=== PATIENT | female | born 1945 | race Caucasian/White ===

== ENCOUNTER 2017-03-10 18:24 | Emergency (ER) | payer MEDICARE, MEDICAID ==
[~2017-03-10] VITALS: Ht 165.1 cm; Wt 94.8 kg
[~2017-03-10 18:24] MED LIST: ASPI-605 PO; ESOM40CA PO; FENO54TA PO; FLUT1DIS INH; FURO40TA5 PO; LUBI8CAP PO; METO100T3 PO; OLME1TAB PO; PRAM0.253 GT; SIMV20TA6 PO; SOLI5TAB PO; ZOLP5TAB7 PO
--- NOTE | 2017-03-10 18:40 | NUR ---
PT SELF PRESENTS TO ED WITH FAMILY COMPLAINS OF HEART BURN, EPIGASTRIC PAIN. PLACED PT ON MONITOR. VSS. SAFETY MEASURES IN PLACED. AWAITING MD ORDER.
[2017-03-10] MEDS ORDERED: IV SET PRIMARY PUMP SET 1 EA INFUS.SET MC ONE (18:42)
[2017-03-10] MEDS ORDERED: FAMOTIDINE/PF INJ 20 MG/2 ML VIAL IV ONE ×2 (18:42→19:00)
[2017-03-10] MEDS ORDERED: ONDANSETRON HCL/PF 4 MG/2 ML VIAL ONE ×2 (18:42→19:30)
[2017-03-10] MEDS ORDERED: IV NS 0.9% 1,000 ML ONE (18:42)
--- NOTE | 2017-03-10 18:50 | NUR ---
BHARAT #20 IV ACCESS BLOOD SAMPLE COLLECTED SENT TO LAB
[2017-03-10 18:58] LABS: BASOPHILS # (AUTO) 0.2 /CMM (0.0-0.2); BASOPHILS % (AUTO) 1.9 % (0.0-2.0); EOSINOPHILS # (AUTO) 0.4 /CMM (0.0-0.7); EOSINOPHILS % (AUTO) 4.1 % (0.0-6.0); HEMATOCRIT 36 % (33-45); HEMOGLOBIN 12.1 g/dL (11.5-14.8); LYMPHOCYTES # (AUTO) 1.5 /CMM (0.8-4.8); LYMPHOCYTES % (AUTO) 14.7 % (20.0-44.0); MEAN CORPUSCULAR HEMOGLOBIN 28 PG (26.0-33.0); MEAN CORPUSCULAR HGB CONC 34 g/dl (31.0-36.0); MEAN CORPUSCULAR VOLUME 83 fL (82-100); MONOCYTES # (AUTO) 0.6 /CMM (0.1-1.30); MONOCYTES % (AUTO) 5.9 % (2.0-12.0); NEUTROPHILS # (AUTO) 7.4 /CMM (1.8-8.9); NEUTROPHILS % (AUTO) 73.4 % (43.0-81.0); PLATELET COUNT (AUTO) 319 /CMM (150-450); RDW COEFFICIENT OF VARIATION 15.2 (11.5-15.0); RED BLOOD CELL COUNT(AUTO) 4.32 MIL/uL (4.0-5.2); WHITE BLOOD COUNT (AUTO) 10.1 K/uL (4.3-11.0)
[2017-03-10] MEDS ORDERED: ONDANSETRON HCL/PF 4 MG/2 ML VIAL IVP ONE ×2 (19:00→20:00)
[2017-03-10] MEDS ORDERED: IV NS 0.9% 500 ML IV ONE (19:00)
--- NOTE | 2017-03-10 19:03 | NUR ---
XRAY AT BEDSIDE
[2017-03-10 19:09] LABS: CALCIUM, SERUM 10.2 mg/dL (8.5-10.1); CREATININE 1.4 mg/dL (0.6-1.3); POTASSIUM 3.7 mmol/L (3.5-5.1)
[2017-03-10 19:14] LABS: ALBUMIN 3.9 g/dL (3.4-5.0); BILIRUBIN,DIRECT 0.1 mg/dL (0.0-0.2); BILIRUBIN,TOTAL 0.2 mg/dL (0.2-1.0); TOTAL PROTEIN, SERUM 7.5 g/dL (6.4-8.2)
[2017-03-10 19:17] LABS: TROPONIN I 0.043 ng/mL (0.00-0.056)
--- NOTE | 2017-03-10 19:18 | NUR ---
GAVE REPORT TO ED FOR JULISSA
--- NOTE | 2017-03-10 19:20 | NUR ---
ASSUMED CARE. RECEIVE PT AAOX4 NO ACUTE DISTRESS NOTED, RESP EVEN AND UNLABORED. PT AMBULATORY TO THE BATHROOM WITH STEADY GAIT TO PROVIDE URINE SAMPLE.
[2017-03-10] MEDS ORDERED: LIDOCAINE VISCOUS 2% UD 15 ML UDC ONE (19:28)
[2017-03-10] MEDS ORDERED: MAG HYDROX/AL HYDROX/SIMETH 30 ML UDC ONE (19:28)
--- NOTE | 2017-03-10 19:30 | NUR ---
PT STILL C/O NAUSEA. ER MD MADE AWARE WITH ORDERS RECEIVED. WILL CARRY OUT ORDERS.
--- NOTE | 2017-03-10 19:35 | NUR ---
PT MEDICATED BY RN PER ER MD ORDER.
[2017-03-10 19:36] LABS: APPEARANCE,URINE Clear (CLEAR); BILIRUBIN,URINE Negative (NEGATIVE); BLOOD, URINE Trace-intact Ery/uL (NEGATIVE); COLOR,URINE Yellow (YELLOW); KETONES,URINE Negative (NEGATIVE); LEUKOCYTE ESTERASE ,URINE Negative (NEGATIVE); NITRITE, URINE Positive (NEGATIVE); PH,URINE 5.5 (5.0-8.0); PROTEIN,URINE Negative (NEGATIVE); UGLUCOSE Negative (NEGATIVE); UROBILINOGEN,URINE 0.2 EU/dL (0.2)
--- NOTE | 2017-03-10 19:37 | NUR ---
ESA GAMBLE AT BEDSIDE TO RE-EVAL PT.
[2017-03-10] MEDS ORDERED: methylPREDNISolone SOD SUCC 125 MG/2ML VIAL ONE (19:43)
[2017-03-10] MEDS ORDERED: diphenhydrAMINE HCL 50 MG/ML VIAL ONE (19:43)
[2017-03-10 19:45] LABS: ADD URINE CULTURE YES; BACTERIA,URINE Many /HPF (None Seen); RBC,URINE 0-2 /HPF (0-2); SQUAMOUS EPITHELIAL CELL,UR Few /HPF (None Seen); WBC,URINE 0-2 /HPF (0-3)
--- NOTE | 2017-03-10 19:57 | NUR ---
ESA GAMBLE AT BEDSIDE TO RE-EVAL PT.
[2017-03-10] MEDS ORDERED: MAG HYDROX/AL HYDROX/SIMETH 30 ML UDC PO ONE (20:00)
[2017-03-10] MEDS ORDERED: diphenhydrAMINE HCL 50 MG/ML VIAL IV ONE (20:00)
[2017-03-10] MEDS ORDERED: methylPREDNISolone SOD SUCC 125 MG/2ML VIAL IV ONE (20:00)
[2017-03-10] MEDS ORDERED: LIDOCAINE VISCOUS 2% UD 15 ML UDC MM ONE (20:00)
--- NOTE | 2017-03-10 20:02 | NUR ---
IV removed. Catheter intact and site benign. Pressure and 4x4 applied to site. No bleeding noted. Patient discharged to home in stable condition. Written and verbal after care instructions given. Patient verbalizes understanding of instruction. ambulatory with a steady gait noted. pt aaox4 no acute disrtess noted, resp even and unlabored. pt family member at bedside to take pt home.
[2017-03-10 20:06] VITALS: BP 162/92
== END 2017-03-10 20:08 | disposition home or self-care (01) ==
LOC: ER 18:25
DX: T78.40XA Allergy, unspecified, initial encounter (principal); R10.13 Epigastric pain; I10 Essential (primary) hypertension; J45.909 Unspecified asthma, uncomplicated; K21.9 Gastro-esophageal reflux disease without esophagitis; K44.9 Diaphragmatic hernia without obstruction or gangrene; Z79.82 Long term (current) use of aspirin; Z88.1 Allergy status to other antibiotic agents
CPT/HCPCS: 36415; 71010; 80048; 80076; 81001; 83690; 84484; 85025; 87077; 87086; 87186; 93005; 96374; 96375; 96376; 99285; A4606; J1200; J2405; J2930; J3490; J7030; 81000-TC; Z7610

== ENCOUNTER 2019-06-26 17:33 | Emergency (ER) | payer MEDICARE, MEDICAID ==
[~2019-06-26 17:33] MED LIST changes: +METO100T14 PO; -METO100T3 PO; -OLME1TAB PO; +OLME1TAB16 PO; -SOLI5TAB PO; +SOLI5TAB2 PO; -ZOLP5TAB7 PO; +ZOLP5TAB8 PO
--- NOTE | 2019-06-26 18:05 | NUR ---
CALLED IN WAITING ROOM. NO ANSWER.
== END 2019-06-26 18:20 | disposition left against medical advice (07) ==
LOC: ER 17:33
DX: Z53.21 Procedure and treatment not carried out due to patient leaving prior to being seen by health care provider (principal)

== ENCOUNTER 2019-09-24 17:38 | Inpatient (IN) | payer MEDICARE, MEDICAID ==
[~2019-09-24] VITALS: Ht 154.9 cm; Wt 88.0 kg
--- NOTE | 2019-09-24 17:45 | NUR ---
BIB [facility] FROM HOME, WORSENING BACK PAIN,EPIDURAL SHOT GIVEN 3 DAYS AGO. PATIENT A/OX4, BREATHING EVEN AND UNLABORED, NO SOB NOTED, NEEDS ATTENDED, KEPT COMFORTABLE. FAMILY AT BEDSIDE.
--- NOTE | 2019-09-24 17:50 | NUR ---
DR. DE LA TORRE AT BEDSIDE FOR EVAL.
[2019-09-24] MEDS ORDERED: KETOROLAC TROMETHAMINE INJ 30 MG/ML VIAL IV ONE (18:00)
[2019-09-24] MEDS ORDERED: HYDROMORPHONE INJ 2 MG/ML DISP.SYRIN IV ONE (18:00)
[2019-09-24] MEDS ORDERED: KETOROLAC TROMETHAMINE 15 MG/ML VIAL ONE (18:02)
[2019-09-24] MEDS ORDERED: HYDROMORPHONE 1 MG/1 ML DISP.SYRIN ONE (18:03)
--- NOTE | 2019-09-24 18:57 | NUR ---
Patient is resting comfortably in bed with eyes closed. Easily aroused. VSS
--- NOTE | 2019-09-24 18:58 | NUR ---
BP ELEVATED, MD AWARE.
[2019-09-24] MEDS ORDERED: hydrALAZINE HCL IV 20 MG VIAL IV ONE (19:00)
[2019-09-24] MEDS ORDERED: CARVEDILOL 6.25 MG TABLET PO ONE (19:00)
--- NOTE | 2019-09-24 19:02 | NUR ---
CALLED NURSING SUP FOR MED/SURG BED.
[2019-09-24] MEDS ORDERED: hydrALAZINE HCL IV 20 MG VIAL ONE (19:04)
[2019-09-24] MEDS ORDERED: CARVEDILOL 6.25 MG TABLET ONE (19:04)
[2019-09-24] MEDS ORDERED: IV NS 0.9% 1,000 ML IV PRN (19:26)
--- NOTE | 2019-09-24 19:28 | NUR ---
AALIYAH ROSSI HOUSE DIRECTOR AT BEDSIDE FOR EVAL.
[2019-09-24] MEDS ORDERED: ACETAMINOPHEN 325 MG TABLET PO PRN (19:30)
[2019-09-24] MEDS ORDERED: MAGNESIUM HYDROXIDE 30 ML UDC PO PRN (19:30)
[2019-09-24] MEDS ORDERED: MAG HYDROX/AL HYDROX/SIMETH 30 ML UDC PO PRN (19:30)
[2019-09-24] MEDS ORDERED: HYDROCODONE/APAP 10/325MG 1 EA TABLET PO PRN (19:30)
[2019-09-24] MEDS ORDERED: ONDANSETRON HCL/PF 4 MG/2 ML VIAL IVP PRN (19:30)
[2019-09-24] MEDS ORDERED: ZOLPIDEM TARTRATE 5 MG TABLET PO PRN (19:30)
[2019-09-24 19:47] LABS: BASOPHILS % (AUTO) 0.5 % (0.0-2.0); EOSINOPHILS % (AUTO) 0.7 % (0.0-6.0); HEMATOCRIT 39 % (33-45); HEMOGLOBIN 12.8 g/dL (11.5-14.8); LYMPHOCYTES # (AUTO) 1.7 /CMM (0.8-4.8); LYMPHOCYTES % (AUTO) 17.5 % (20.0-44.0); MEAN CORPUSCULAR HGB CONC 33 g/dl (31.0-36.0); MEAN CORPUSCULAR VOLUME 84 fL (82-100); MONOCYTES # (AUTO) 0.5 /CMM (0.1-1.30); MONOCYTES % (AUTO) 5.3 % (2.0-12.0); NEUTROPHILS # (AUTO) 7.5 /CMM (1.8-8.9); PLATELET COUNT (AUTO) 319 /CMM (150-450); RED BLOOD CELL COUNT(AUTO) 4.67 MIL/uL (4.0-5.2); WHITE BLOOD COUNT (AUTO) 9.8 K/uL (4.3-11.0)
--- NOTE | 2019-09-24 19:51 | NUR ---
TAKEN TO CT.
[2019-09-24 19:59] LABS: CALCIUM, SERUM 9.7 mg/dL (8.5-10.1); CREATININE 1.2 mg/dL (0.6-1.3); POTASSIUM 4.5 mmol/L (3.5-5.1)
--- NOTE | 2019-09-24 19:59 | NUR ---
NURSIGN SUP GAVE BED 328-2.
[2019-09-24] MEDS ORDERED: hydrALAZINE HCL IV 20 MG VIAL IV PRN (20:00)
--- NOTE | 2019-09-24 20:14 | NUR ---
REPORT GIVEN TO GRABIEL MATOS. MED RECON REVIEWED.
[2019-09-24] MEDS ORDERED: RANI300C PO (20:26)
[2019-09-24] MEDS ORDERED: OLME1TAB19 PO (20:26)
[2019-09-24] MEDS ORDERED: LINA290C PO (20:26)
[2019-09-24] MEDS ORDERED: ESZO3TAB27 PO (20:26)
[2019-09-24] MEDS ORDERED: CARV12.52 PO (20:26)
[2019-09-24] MEDS ORDERED: CLOP75TA15 PO (20:26)
[2019-09-24] MEDS ORDERED: MYRBETRIQ PO (20:26)
[2019-09-24] MEDS ORDERED: CHOL20004 PO (20:26)
[2019-09-24] MEDS ORDERED: FLUO60SO3 TP (20:26)
[2019-09-24] MEDS ORDERED: OMEP40CA37 PO (20:26)
[2019-09-24] MEDS ORDERED: DOCU250C88 PO (20:26)
[2019-09-24] MEDS ORDERED: FLUT1BLS6 IH (20:26)
[2019-09-24] MEDS ORDERED: FEBU40TA PO (20:26)
[2019-09-24] MEDS ORDERED: IMIP25TA6 PO (20:26)
[2019-09-24] MEDS ORDERED: SPIR25TA6 PO (20:26)
[2019-09-24] MEDS ORDERED: NALT50TA PO (20:26)
[2019-09-24] MEDS ORDERED: ROSU10TA2 PO (20:26)
[2019-09-24] MEDS ORDERED: FENO134C PO (20:26)
--- NOTE | 2019-09-24 20:42 | NUR ---
PATIENT TRANSFERRED TO MED SURG, IN STABLE CONDITION. FAMILY AT BEDSIDE.
[2019-09-24 20:45] VITALS: BP 176/83
--- NOTE | 2019-09-24 20:45 | NUR ---
RN MS ADMITTING OPENING NOTES RECEIVED PATIENT FROM ER VIA GURNEY SAFELY TRANSFERRED TO BED, AWAKE ALERT AND ORIENTED X4, NEPALI AND [place] SPEAKING FAMILY AT BEDSIDE, NOTED PATIENT WITH PAIN GRASPING RIGHT SIDE BACK EXTENDING TO LEG STATES "10/". IV SITE TO LEFT AC #20 G INTACT AND PATENT, NO REDNESS, NO INFILTRATION PRESENT, PER PATIENT WHEN OFFERED BODY SKIN ASSESSMENT NO OPEN WOUND PRESENT, ONLY RIGHT KNEE BRUISE. BELONGINGS LIST DONE, ORIENTED TO STAFF AND CALL LIGHT AND KEPT WITHIN REACH, SAFETY PRECAUTIONS IN PLACE LOW BED AND LOCKED, BEDSIDE COMMODE OFFERED, BED ALARM IN PLACE FOR SAFETY. FALL PRECAUTIONS RENDERED, DISCUSSED PLAN OF CARE WITH PATIENT AND FAMILY ALL NEEDS WERE ATTENDED WILL CONTINUE TO MONITOR AND CARRY OUT MD ORDERS.
[2019-09-24] MEDS: HYDROMORPHONE INJ 2 MG/ML DISP.SYRIN IV PRN (20:59)
--- NOTE | 2019-09-24 20:59 | NUR ---
RN MS NOTES PATIENT COMPLAINT OF PAIN 10/10 DILAUDID PRN OFFERED PATIENT AGREED, PRN DILAUDID 0.5ML GIVEN ORDERED , REST WASTED WITH ANOTHER RN WILL CONTINUE TO MONITOR FOR EFFECTIVENESS.
[2019-09-24] MEDS ORDERED: PANTOPRAZOLE 40 MG TABLET.DR PO SCH (21:00)
[2019-09-24] MEDS ORDERED: CYCLOBENZAPRINE 10 MG TABLET PO PRN (21:30)
--- NOTE | 2019-09-24 22:19 | NUR ---
RN MS NOTES PATIENT AND FAMILY REQUESTING FOR FLEXERIL. PRN GIVEN ORDERED WILL CONTINUE TO MONITOR FOR EFFECTIVENESS.
--- NOTE | 2019-09-25 00:05 | NUR ---
RN MS NOTES PATIENT UNABLE TO SLEEP REQUESTING FOR AMBIEN PRN AMBIEN GIVEN ORDERED, WILL CONTINUE TO MONITOR FOR EFFECTIVENESS.
[2019-09-25] MEDS ORDERED: ZOLPIDEM TARTRATE 10 MG TABLET PO PRN (01:30)
[2019-09-25] MEDS: HYDROMORPHONE INJ 2 MG/ML DISP.SYRIN IV PRN ×3 (04:15→19:20)
--- NOTE | 2019-09-25 04:15 | NUR ---
RN MS NOTES PATIENT COMPLAINT OF PAIN 10/10 TO POSTERIOR BACK EXTENDING TO RIGHT LOWER LEG AND FOOT DILAUDID PRN OFFERED PATIENT AGREED, PRN DILAUDID 0.5ML GIVEN ORDERED , REST WASTED WITH ANOTHER RN WILL CONTINUE TO MONITOR FOR EFFECTIVENESS.
[2019-09-25 04:23] VITALS: BP 146/80
--- NOTE | 2019-09-25 06:46 | NUR ---
RN MS CLOSING NOTES PATIENT CURRENTLY IN BED SLEEPING BUT EASILY AROUSABLE ,A&O X 4 RESPIRATION EVEN AND UNLABORED WITH EQUAL RISE AND FALL OF CHEST, AT THIS TIME NO COMPLAINT OF PAIN NOTED WHILE IN BED. PATIENT WAS ABLE TO SLEEP WELL THROUGHOUT NIGHT NOTED PRN FLEXERIL AND DILAUDID PROVIDED RELIEF, AMBIEN WAS ALSO EFFECTIVE, NO ADVERSE REACTIONS NOTED TOLERATED MEDICATIONS WELL.RIGHT KNEE BRUISE NOTED UPON ADMISSION, IV SITE TO LEFT AC#20 G INTACT AND PATENT, NO REDNESS, NO INFILTRATION PRESENT, SL, FLUIDS OFFERED AND TOLERATED WELL, SAFETY PRECAUTIONS IN PLACE, LOW BED AND LOCKED, BED ALARM IN PLACE, CALL LIGHT KEPT WITHIN REACH, OFFERED BEDSIDE COMMODE THROUGHOUT SHIFT. NO FURTHER CHANGES NOTED FROM TIME OF ADMISSION , ALL NEEDS WERE ATTENDED WILL CONTINUE TO MONITOR AND ENDORSE TO NEXT SHIFT.
[2019-09-25 07:06] LABS: BASOPHILS % (AUTO) 0.5 % (0.0-2.0); CALCIUM, SERUM 9.4 mg/dL (8.5-10.1); EOSINOPHILS % (AUTO) 1.2 % (0.0-6.0); HEMATOCRIT 36 % (33-45); LYMPHOCYTES # (AUTO) 1.6 /CMM (0.8-4.8); LYMPHOCYTES % (AUTO) 20.8 % (20.0-44.0); MAGNESIUM 2.1 mg/dL (1.8-2.4); MEAN CORPUSCULAR HGB CONC 33 g/dl (31.0-36.0); MEAN CORPUSCULAR VOLUME 83 fL (82-100); MONOCYTES # (AUTO) 0.5 /CMM (0.1-1.30); MONOCYTES % (AUTO) 6.9 % (2.0-12.0); NEUTROPHILS # (AUTO) 5.3 /CMM (1.8-8.9); NEUTROPHILS % (AUTO) 70.6 % (43.0-81.0); PHOSPHORUS 3.9 mg/dL (2.5-4.9); PLATELET COUNT (AUTO) 302 /CMM (150-450); POTASSIUM 4.5 mmol/L (3.5-5.1); RED BLOOD CELL COUNT(AUTO) 4.37 MIL/uL (4.0-5.2); WHITE BLOOD COUNT (AUTO) 7.5 K/uL (4.3-11.0)
[2019-09-25 08:00] VITALS: BP 171/89
--- NOTE | 2019-09-25 08:00 | NUR ---
MS RN OPENING NOTES Received Patient resting in bed. A/O x 4, [place] Arabian/Bangladeshi speaking. VS stable with no acute distress. Breathing even and unlabored on room air with no respiratory distress. Patient stated pain level of 10/10 on right lower back and right lower leg. Will intervene as ordered. 20g PIV on LAC clean, dry, intact and flushing well. Safety precautions in place. Bed locked and set to lowest position with side rails x 2 up. Call light within reach. Will continue to monitor.
[2019-09-25] MEDS ORDERED: ULORIC 40 MG PO SCH (09:00)
[2019-09-25] MEDS ORDERED: LINZESS 290 MCG PO SCH (09:00)
[2019-09-25] MEDS: PANTOPRAZOLE 40 MG TABLET.DR PO SCH (09:22)
[2019-09-25] MEDS: SPIRONOLACTONE 25 MG TABLET PO SCH (09:22)
[2019-09-25] MEDS: DOCUSATE SODIUM 250 MG CAPSULE PO SCH (09:22)
[2019-09-25] MEDS: CHOLECALCIFEROL 1,000 UNIT TABLET (VIT D3) PO SCH (09:23)
[2019-09-25] MEDS: CLOPIDOGREL BISULFATE 75 MG TABLET PO SCH (09:23)
[2019-09-25] MEDS: FENOFIBRATE NANOCRYS (145 MG) 145 MG TABLET PO SCH (09:23)
[2019-09-25] MEDS: CARVEDILOL 12.5 MG TABLET PO SCH ×2 (09:23→17:14)
[2019-09-25] MEDS: IMIPRAMINE 25 MG TABLET PO SCH (09:26)
[2019-09-25] MEDS: FLUTICASONE/VILANTEROL 1 EACH BLST.W.DEV IH SCH (09:27)
[2019-09-25] MEDS ORDERED: HYDROCODONE/APAP 5/325MG 1 EACH TABLET PO PRN (12:00)
[2019-09-25] MEDS: KETOROLAC TROMETHAMINE INJ 30 MG/ML VIAL IM SCH ×2 (13:22→20:52)
[2019-09-25] MEDS: GABAPENTIN 300 MG CAPSULE PO SCH ×2 (13:22→17:14)
[2019-09-25] MEDS: LIDOCAINE 5% (PATCH) 1 EA PATCH TP SCH (13:23)
[2019-09-25] MEDS ORDERED: HYDROCODONE/APAP 10/325MG 1 EA TABLET PO PRN (15:30)
[2019-09-25 16:00] VITALS: BP 134/78
--- NOTE | 2019-09-25 19:27 | NUR ---
MS RN CLOSING NOTES Patient awake and resting in bed. A/O x 4, Singaporean/Tanzanian speaking. VS stable with no acute distress. Breathing even and unlabored on room air with no respiratory distress. Patient stated pain level of 6/10 on right lower back and right lower leg. Administered Dilaudid 1mg IVP per Patients request at 1920. 20g PIV on LAC clean, dry, intact and flushing well. Safety precautions in place. Bed locked and set to lowest position with side rails x 2 up. All needs rendered at this time. Call light within reach. Will endorse plan of care to oncoming shift.
--- NOTE | 2019-09-25 19:28 | NUR ---
MS RN PATIENT IN BED AWAKE A/O X 4, NO S/S OF DISTRESS, STABLE, CALL LIGHT WITHIN REACH. WILL CONTINUE TO MONITOR ACCORDINGLY.
[2019-09-25 20:00] VITALS: BP 156/83
[2019-09-25] MEDS ORDERED: ATORVASTATIN 10 MG TABLET PO SCH (22:00)
[2019-09-26] MEDS: KETOROLAC TROMETHAMINE INJ 30 MG/ML VIAL IM SCH ×2 (03:52→12:43)
--- NOTE | 2019-09-26 06:37 | NUR ---
ASLEEP AND EASILY AWAKEN, SLEPT WELL. MONITORED FOR PAIN, PAIN MEDICATED WITH PAIN MED WITH RELIEF. NO S/S OF DISTRESS, NURSING CARE RENDERED, KEPT CLEAN AND DRY AND COMFORTABLE. NEEDS ATTENDED AND ANTICIPATED. SAFETY MEASURES AT ALL TIMES. ENDORSE TO THE NEXT SHIFT.
[2019-09-26 08:00] VITALS: BP 128/54
--- NOTE | 2019-09-26 08:00 | NUR ---
MS RN OPENING NOTES Received Patient asleep and resting in bed. A/O x 4, French/Turkish speaking. VS stable with no acute distress. Breathing even and unlabored on room air with no respiratory distress. No signs and symptoms of pain at this time. 20g PIV on LAC clean, dry, intact and flushing well. Safety precautions in place. Bed locked and set to lowest position with side rails x 2 up. Call light within reach. Will continue to monitor.
[2019-09-26] MEDS ORDERED: FUROSEMIDE 40 MG TABLET PO SCH (09:00)
[2019-09-26] MEDS: DOCUSATE SODIUM 250 MG CAPSULE PO SCH (09:00)
[2019-09-26] MEDS: FLUTICASONE/VILANTEROL 1 EACH BLST.W.DEV IH SCH (09:29)
[2019-09-26] MEDS: SPIRONOLACTONE 25 MG TABLET PO SCH (09:29)
[2019-09-26] MEDS: PANTOPRAZOLE 40 MG TABLET.DR PO SCH (09:29)
[2019-09-26 09:30] VITALS: BP 132/56
[2019-09-26] MEDS: CARVEDILOL 12.5 MG TABLET PO SCH (09:30)
[2019-09-26] MEDS: GABAPENTIN 300 MG CAPSULE PO SCH ×2 (09:31→12:43)
[2019-09-26] MEDS: IMIPRAMINE 25 MG TABLET PO SCH (09:31)
[2019-09-26] MEDS: CHOLECALCIFEROL 1,000 UNIT TABLET (VIT D3) PO SCH (09:31)
[2019-09-26] MEDS: FENOFIBRATE NANOCRYS (145 MG) 145 MG TABLET PO SCH (09:31)
[2019-09-26] MEDS: CLOPIDOGREL BISULFATE 75 MG TABLET PO SCH (09:31)
[2019-09-26] MEDS: HYDROMORPHONE INJ 2 MG/ML DISP.SYRIN IV PRN (09:45)
[2019-09-26] MEDS ORDERED: CYCL10TA9 PO (12:32)
[2019-09-26] MEDS ORDERED: HYDR-3972 PO (12:32)
[2019-09-26] MEDS ORDERED: LIDO30AD10 TP (12:32)
[2019-09-26] MEDS ORDERED: GABA300C PO (12:32)
[2019-09-26] MEDS ORDERED: KETO10TA2 PO (12:32)
[2019-09-26] MEDS: LIDOCAINE 5% (PATCH) 1 EA PATCH TP SCH (12:43)
--- NOTE | 2019-09-26 16:27 | NUR ---
MS DEVICE SALES CONSULTANT NOTES Patient discharged for home at this time. Patient in stable condition. VS stable with no acute distress. Breathing even and unlabored on room air with no respiratory distress. Patient states tolerable pain level of 4/10. Patient refused skin assessment pictures. Medication reconciliation and discharge orders reviewed and explained to Patient and daughter. Patient and daughter verbalized understanding. All belongings with Patient. Patient will follow up with Dr. Cline for pain management within one week. Escorted Patient to the lobby for safety. Patient picked up by daughterIliana.
== END 2019-09-26 16:24 | disposition home or self-care (01) | DRG 552 ==
LOC: ER 17:43 → MED 20:30
PROVIDERS: ADMIT Nurse Practitioner Acute Care; ATTEND Registered Nurse
DX: M51.17 Intervertebral disc disorders with radiculopathy, lumbosacral region (principal); S83.91XA Sprain of unspecified site of right knee, initial encounter; W18.30XA Fall on same level, unspecified, initial encounter; Y92.9 Unspecified place or not applicable; K21.9 Gastro-esophageal reflux disease without esophagitis; M81.0 Age-related osteoporosis without current pathological fracture; I10 Essential (primary) hypertension; E78.5 Hyperlipidemia, unspecified; I16.0 Hypertensive urgency; Z68.33 Body mass index [BMI] 33.0-33.9, adult; E66.9 Obesity, unspecified; K43.9 Ventral hernia without obstruction or gangrene; Z79.02 Long term (current) use of antithrombotics/antiplatelets; Z79.51 Long term (current) use of inhaled steroids; Z79.899 Other long term (current) drug therapy; Z79.82 Long term (current) use of aspirin; Z82.49 Family history of ischemic heart disease and other diseases of the circulatory system; Z88.1 Allergy status to other antibiotic agents; J44.9 Chronic obstructive pulmonary disease, unspecified; G89.4 Chronic pain syndrome; F17.200 Nicotine dependence, unspecified, uncomplicated; Z98.890 Other specified postprocedural states; M48.07 Spinal stenosis, lumbosacral region; R79.89 Other specified abnormal findings of blood chemistry
CPT/HCPCS: 36415; 72110-TC; 72131-TC; 73564-TC; 80048-TC; 80061-TC; 83735-TC; 84100-TC; 85025-TC; 87081-TC; 97110-TC; 97112-TC; 97116-TC; 97530-TC; 97535-TC; G0378; J0360; J1170; J1885; J7030

== ENCOUNTER 2019-09-30 14:59 | Outpatient (CLI) | payer MEDICARE, MEDICAID ==
[~2019-09-30 14:59] MED LIST changes: +CARV12.52 PO; +CHOL20004 PO; +CLOP75TA15 PO; +CYCL10TA9 PO; +DOCU250C88 PO; +ESZO3TAB27 PO; +FEBU40TA PO; +FENO134C PO; +FLUO60SO3 TP; +FLUT1BLS6 IH; +GABA300C PO; +HYDR-3972 PO; +IMIP25TA6 PO; +KETO10TA2 PO; +LIDO30AD10 TP; +LINA290C PO; +MYRBETRIQ PO; +NALT50TA PO; +OLME1TAB19 PO; +OMEP40CA37 PO; +RANI300C PO; +ROSU10TA2 PO; +SPIR25TA6 PO
[2019-09-30 15:00] VITALS: BP 150/90
== END 2019-09-30 23:59 | disposition home or self-care (01) ==
LOC: MSC 14:59
PROVIDERS: ATTEND Internal Medicine
DX: M54.16 Radiculopathy, lumbar region (principal); M51.36 Other intervertebral disc degeneration, lumbar region; I10 Essential (primary) hypertension; E78.5 Hyperlipidemia, unspecified; J44.9 Chronic obstructive pulmonary disease, unspecified; F17.200 Nicotine dependence, unspecified, uncomplicated; K43.9 Ventral hernia without obstruction or gangrene; K21.9 Gastro-esophageal reflux disease without esophagitis; E66.9 Obesity, unspecified; Z68.39 Body mass index [BMI] 39.0-39.9, adult; Z79.899 Other long term (current) drug therapy
CPT/HCPCS: G0463 ×2

== ENCOUNTER 2019-10-13 06:25 | Day surgery (SDC) | payer MEDICARE, MEDICAID ==
[~2019-10-13 06:25] MED LIST changes: -ASPI-605 PO; -ESOM40CA PO; -FENO54TA PO; -FLUT1DIS INH; -LUBI8CAP PO; -METO100T14 PO; -OLME1TAB16 PO; +OMEP40CA13 PO; -OMEP40CA37 PO; -PRAM0.253 GT; -SIMV20TA6 PO; -SOLI5TAB2 PO; -ZOLP5TAB8 PO
[2019-10-13] MEDS ORDERED: DEXAMETHASONE SOD PHOSPHATE 10 MG/ML VIAL ONE ×2 (08:05→08:06)
[2019-10-13] MEDS ORDERED: IOHEXOL 240MG/ML 50 ML IV ONE (08:06)
[2019-10-13] MEDS ORDERED: BUPIVACAINE 0.25% 75 MG/30 ML VIAL ONE (08:06)
[2019-10-13] MEDS ORDERED: LIDOCAINE HCL/PF 1% 30 ML SDV ONE (08:06)
== END 2019-10-13 09:25 | disposition home or self-care (01) ==
LOC: DS 06:25
PROVIDERS: ATTEND Anesthesiology
DX: M54.5 Low back pain (principal); M47.26 Other spondylosis with radiculopathy, lumbar region; I11.0 Hypertensive heart disease with heart failure; I50.9 Heart failure, unspecified
CPT/HCPCS: 64483; 64484; 72020; A6209; J1100 ×2; J2704; J3490; Q9966

== ENCOUNTER → 2020-01-20 | Outpatient (CLI) | payer MEDICARE, MEDICAID | END | disposition home or self-care (01) | LOC: MSC 14:45 | PROVIDERS: ATTEND Anesthesiology | DX: M46.96 Unspecified inflammatory spondylopathy, lumbar region (principal); M51.26 Other intervertebral disc displacement, lumbar region; M48.061 Spinal stenosis, lumbar region without neurogenic claudication; M62.830 Muscle spasm of back; M25.9 Joint disorder, unspecified; M79.604 Pain in right leg; Z79.899 Other long term (current) drug therapy ==

== ENCOUNTER → 2020-01-28 | Day surgery (SDC) | payer MEDICARE, MEDICAID ==
[~2020-01-28] MED LIST changes: +BUPIVACAINE 0.25% 75 MG/30 ML VIAL ONE; +DEXAMETHASONE SOD PHOSPHATE 10 MG/ML VIAL ONE; +IOHEXOL 240MG/ML 50 ML IV ONE; +LIDOCAINE HCL/PF 1% 30 ML SDV ONE
== END | disposition home or self-care (01) ==
LOC: DS 07:31
PROVIDERS: ATTEND Anesthesiology
DX: M47.26 Other spondylosis with radiculopathy, lumbar region (principal); M47.27 Other spondylosis with radiculopathy, lumbosacral region; E66.01 Morbid (severe) obesity due to excess calories; I10 Essential (primary) hypertension; G89.29 Other chronic pain; M54.5 Low back pain; Z79.899 Other long term (current) drug therapy
CPT/HCPCS: 64483; 64484; 72020; A6402; J1100; J2704; J3490 ×3; Q9966

== ENCOUNTER → 2020-07-06 | Outpatient (CLI) | payer MEDICARE, MEDICAID ==
[~2020-07-06] MED LIST changes: -BUPIVACAINE 0.25% 75 MG/30 ML VIAL ONE; -DEXAMETHASONE SOD PHOSPHATE 10 MG/ML VIAL ONE; +DOCU250C21 PO; -DOCU250C88 PO; -IOHEXOL 240MG/ML 50 ML IV ONE; -LIDOCAINE HCL/PF 1% 30 ML SDV ONE
== END | disposition home or self-care (01) ==
LOC: MSC 11:00
PROVIDERS: ATTEND Anesthesiology
DX: M46.96 Unspecified inflammatory spondylopathy, lumbar region (principal); M51.26 Other intervertebral disc displacement, lumbar region; M54.16 Radiculopathy, lumbar region; M48.061 Spinal stenosis, lumbar region without neurogenic claudication; M62.830 Muscle spasm of back; M79.606 Pain in leg, unspecified; M25.9 Joint disorder, unspecified

== ENCOUNTER 2020-07-09 09:59 | Outpatient (CLI) | payer MEDICARE, MEDICAID | END 2020-07-09 23:59 | disposition home or self-care (01) | LOC: LAB 09:59 | PROVIDERS: ATTEND Anesthesiology | DX: Z01.812 Encounter for preprocedural laboratory examination (principal); Z11.59 Encounter for screening for other viral diseases | CPT/HCPCS: 87426; C9803 ==

== ENCOUNTER 2020-07-15 06:53 | Inpatient (IN) | payer MEDICARE, OTHER ==
--- NOTE | 2020-07-15 07:30 | NUR ---
MS RN NOTES PATIENT ARRIVED FROM HOME AMBULATORY. ALERT, ORIENTED X4. IN STABLE CONDITION. SCHEDULED FOR SPINAL EPIDURAL WITH STEROID. CONSENT OBTAINED. ID BAND ON WRIST. BELONGING AT BEDSIDE. HOSPITAL GOWN ON. WILL CONTINUE TO MONITOR.
[2020-07-15] MEDS ORDERED: IOHEXOL 240MG/ML 50 ML IV ONE (07:31)
[2020-07-15] MEDS ORDERED: TRIAMCINOLONE ACETONIDE SUSP 40 MG/ML 1 ML ONE (07:32)
[2020-07-15] MEDS ORDERED: ANESTHESIA TRAY IN PYXIS 1 EA TRAY MC ONE (07:32)
[2020-07-15] MEDS ORDERED: LIDOCAINE HCL/MPF 1% 30 ML VIAL IJ ONE (07:33)
[2020-07-15] MEDS ORDERED: BUPIVACAINE 0.5 % PF 150 MG/30 ML VIAL ONE (07:33)
[2020-07-15] MEDS ORDERED: IV LR 500 ML IV ONE (08:00)
--- NOTE | 2020-07-15 08:00 | NUR ---
MS RN NOTES PATIENT TRANSFERRED TO OR IN STABLE CONDITION.
[2020-07-15] MEDS ORDERED: DEXAMETHASONE SOD PHOSPHATE 10 MG/ML VIAL ONE (08:07)
[2020-07-15] MEDS ORDERED: FLUMAZENIL 0.5 MG VIAL ONE (08:13)
[2020-07-15] MEDS ORDERED: MIDAZOLAM HCL 2 MG/2ML VIAL ONE (08:13)
--- NOTE | 2020-07-15 09:15 | NUR ---
MS RN NOTES PATIENT RETURNED FROM OR IN STABLE CONDITION WITH ORDERS TO BE DISCHARGED TODAY.
[2020-07-15] MEDS ORDERED: HYDROCODONE/APAP 5/325MG TABLET PO PRN (09:30)
--- NOTE | 2020-07-15 10:45 | NUR ---
MS RN NOTES PATIENT DISCHARGED HOME WITH DAUGHTER. IN STABLE CONDITION. ALL BELONGINGS ACCOUNTED FOR. PERIPHERAL IV REMOVED WITH MINIMAL BLEEDING. ID BAND REMOVED. DISCHARGE INSTRUCTIONS PROVIDED, VERBALIZED UNDERSTANDING. PATIENT ESCORTED TO CAR.
== END 2020-07-15 10:45 | disposition home or self-care (01) | DRG 552 ==
LOC: DS 06:53 → MED 06:59
PROVIDERS: ADMIT Anesthesiology; ATTEND Anesthesiology
PROC: 3E0R33Z Introduction of Anti-inflammatory into Spinal Canal, Percutaneous Approach (ICD-10-PCS; principal; 2020-07-15)
PROC: 3E0R3BZ Introduction of Anesthetic Agent into Spinal Canal, Percutaneous Approach (ICD-10-PCS; 2020-07-15)
DX: M47.26 Other spondylosis with radiculopathy, lumbar region (principal); I10 Essential (primary) hypertension; J44.9 Chronic obstructive pulmonary disease, unspecified
CPT/HCPCS: 72020-TC; A6402; G0378; J1100; J2001; J2250; J2704; J3490; J7120; Q9966

== ENCOUNTER 2021-01-11 09:45 | Outpatient (CLI) | payer MEDICARE, OTHER | END 2021-01-11 23:59 | disposition home or self-care (01) | LOC: MSC 09:45 | PROVIDERS: ATTEND Anesthesiology | DX: M46.96 Unspecified inflammatory spondylopathy, lumbar region (principal); M51.26 Other intervertebral disc displacement, lumbar region; M54.16 Radiculopathy, lumbar region; M48.061 Spinal stenosis, lumbar region without neurogenic claudication; M62.830 Muscle spasm of back; M79.604 Pain in right leg; M25.9 Joint disorder, unspecified ==

== ENCOUNTER 2021-01-14 08:33 | Outpatient (CLI) | payer MEDICARE, OTHER | END 2021-01-14 23:59 | disposition home or self-care (01) | LOC: LAB 08:33 | PROVIDERS: ATTEND Anesthesiology | DX: Z01.812 Encounter for preprocedural laboratory examination (principal); Z20.822 Contact with and (suspected) exposure to COVID-19 | CPT/HCPCS: C9803; U0003 ==

== ENCOUNTER 2021-01-18 06:51 | Day surgery (SDC) | payer MEDICARE, OTHER ==
[2021-01-18] MEDS ORDERED: ANESTHESIA TRAY IN PYXIS 1 EA TRAY MC ONE (07:24)
[2021-01-18] MEDS ORDERED: IOHEXOL 240MG/ML 50 ML IV ONE (07:24)
[2021-01-18] MEDS ORDERED: TRIAMCINOLONE ACETONIDE SUSP 40 MG/ML 1 ML ONE (07:24)
[2021-01-18] MEDS ORDERED: LIDOCAINE HCL/MPF 1% 30 ML VIAL IJ ONE (07:48)
[2021-01-18] MEDS ORDERED: BUPIVACAINE 0.5 % PF 150 MG/30 ML VIAL ONE (07:48)
[2021-01-18] MEDS ORDERED: methylPREDNISolone ACETATE 80 MG/ML VIAL ONE (07:49)
[2021-01-18] MEDS ORDERED: DEXAMETHASONE SOD PHOSPHATE 10 MG/ML VIAL ONE ×2 (07:53→08:32)
[2021-01-18] MEDS ORDERED: FENTANYL PF 100MCG/2ML AMPUL ONE (08:15)
[2021-01-18] MEDS ORDERED: BUPIVACAINE 0.25% 75 MG/30 ML VIAL ONE (08:32)
== END 2021-01-18 10:05 | disposition home or self-care (01) ==
LOC: DS 06:51
PROVIDERS: ATTEND Anesthesiology
DX: M47.27 Other spondylosis with radiculopathy, lumbosacral region (principal); M54.5 Low back pain; E66.01 Morbid (severe) obesity due to excess calories; I10 Essential (primary) hypertension
CPT/HCPCS: 36415; 64483; 64484; 72020; 86706; 86803; 87340; 87806; A6402; J1100 ×2; J2704; J3010; J3490 ×2; Q9966; J1040

== ENCOUNTER 2021-06-07 11:25 | Outpatient (CLI) | payer MEDICARE, OTHER ==
[~2021-06-07 11:25] MED LIST changes: -OMEP40CA13 PO; +OMEP40CA21 PO
== END 2021-06-07 23:59 | disposition home or self-care (01) ==
LOC: MSC 11:25
PROVIDERS: ATTEND Anesthesiology
DX: M46.96 Unspecified inflammatory spondylopathy, lumbar region (principal); M51.26 Other intervertebral disc displacement, lumbar region; M48.061 Spinal stenosis, lumbar region without neurogenic claudication; M62.830 Muscle spasm of back; M79.604 Pain in right leg; M25.9 Joint disorder, unspecified

== ENCOUNTER 2021-06-15 11:54 | Outpatient (CLI) | payer MEDICARE, OTHER | END 2021-06-15 23:59 | disposition home or self-care (01) | LOC: LAB 11:54 | PROVIDERS: ATTEND Anesthesiology | DX: Z01.812 Encounter for preprocedural laboratory examination (principal); Z20.822 Contact with and (suspected) exposure to COVID-19 | CPT/HCPCS: C9803; U0003 ==

== ENCOUNTER 2021-06-21 07:00 | Day surgery (SDC) | payer MEDICARE, OTHER ==
[2021-06-21] MEDS ORDERED: FENTANYL PF 100MCG/2ML AMPUL ONE (07:51)
[2021-06-21] MEDS ORDERED: LIDOCAINE 1% INJ 50 ML MDV IJ ONE (08:39)
[2021-06-21] MEDS ORDERED: DEXAMETHASONE SOD PHOSPHATE 10 MG/ML VIAL ONE (08:39)
[2021-06-21] MEDS ORDERED: BUPIVACAINE 0.25% 75 MG/30 ML VIAL ONE (08:39)
[2021-06-21] MEDS ORDERED: IOHEXOL 240MG/ML 50 ML IV ONE (08:39)
== END 2021-06-21 10:15 | disposition home or self-care (01) ==
LOC: DS 07:00
PROVIDERS: ATTEND Anesthesiology
DX: M54.5 Low back pain (principal); M47.27 Other spondylosis with radiculopathy, lumbosacral region; I11.0 Hypertensive heart disease with heart failure; I50.9 Heart failure, unspecified; E78.5 Hyperlipidemia, unspecified; Z90.89 Acquired absence of other organs; Z98.890 Other specified postprocedural states; Z79.899 Other long term (current) drug therapy
CPT/HCPCS: 64483; 64484; 72100; A6402; J1100; J2704; J3010; J3490 ×2; Q9966

== ENCOUNTER → 2022-02-07 | Outpatient (CLI) | payer MEDICARE, OTHER | END | disposition home or self-care (01) | LOC: MSC 11:35 | PROVIDERS: ATTEND Anesthesiology | DX: M54.16 Radiculopathy, lumbar region (principal); M79.605 Pain in left leg; M79.604 Pain in right leg; M46.96 Unspecified inflammatory spondylopathy, lumbar region; M51.26 Other intervertebral disc displacement, lumbar region; M48.061 Spinal stenosis, lumbar region without neurogenic claudication; M62.830 Muscle spasm of back; M25.9 Joint disorder, unspecified; Z88.1 Allergy status to other antibiotic agents; Z79.899 Other long term (current) drug therapy ==

== ENCOUNTER 2022-02-21 11:30 | Outpatient (CLI) | payer MEDICARE, OTHER | END 2022-02-21 23:59 | disposition home or self-care (01) | LOC: MSC 11:30 | PROVIDERS: ATTEND Anesthesiology | DX: M46.96 Unspecified inflammatory spondylopathy, lumbar region (principal); M51.26 Other intervertebral disc displacement, lumbar region; M54.16 Radiculopathy, lumbar region; M48.061 Spinal stenosis, lumbar region without neurogenic claudication; M62.830 Muscle spasm of back; M79.606 Pain in leg, unspecified; M25.9 Joint disorder, unspecified; Z79.891 Long term (current) use of opiate analgesic; Z79.899 Other long term (current) drug therapy ==

== ENCOUNTER 2025-04-23 07:16 | Inpatient (IN) | payer MEDICARE, OTHER ==
[~2025-04-23] VITALS: Ht 160 cm; Wt 95.3 kg
[2025-04-23] MEDS ORDERED: dexaMETHasone SOD PHOSPHATE 2 ML ONE (09:55)
[2025-04-23] MEDS ORDERED: VANCOMYCIN 1 GM VIAL ONE (09:55)
[2025-04-23] MEDS ORDERED: LIDOCAINE 2%-EPI 1:100,000 30 ML VIAL ONE (09:55)
[2025-04-23] MEDS ORDERED: HYDROMORPHONE 1 MG/1 ML DISP.SYRIN IV PRN ×2 (13:30)
[2025-04-23] MEDS ORDERED: ONDANSETRON HCL/PF 4 MG/2 ML VIAL IV PRN (13:30)
[2025-04-23] MEDS ORDERED: IV NS 0.9% 1,000 ML IV PRN (13:30)
[2025-04-23] MEDS: ACETAMINOPHEN 325 MG TABLET PO PRN (14:42)
[2025-04-23] MEDS ORDERED: EDARBYCLOR PO (15:54)
[2025-04-23] MEDS ORDERED: OMEP20CA15 PO (15:54)
[2025-04-23] MEDS ORDERED: CRAN400C PO (15:54)
[2025-04-23] MEDS ORDERED: MAGN400T26 PO (15:54)
[2025-04-23] MEDS ORDERED: GEMTESA PO (15:54)
[2025-04-23] MEDS ORDERED: ESZO3TAB39 PO (15:54)
[2025-04-23] MEDS ORDERED: FENO120T PO (15:54)
[2025-04-23] MEDS ORDERED: IMIP10TA5 PO (15:54)
[2025-04-23 20:00] VITALS: BP 144/80; TEMP 98.2; TEMP 98.7; O2SAT 95; O2SAT 96
[2025-04-23] MEDS: VANCOMYCIN 1 GM in IV D5W 250ml IV SCH (21:43)
[2025-04-23] MEDS: TEMAZEPAM 7.5 MG CAPSULE PO PRN (21:52)
[2025-04-23] MEDS: CARVEDILOL 12.5 MG TABLET PO SCH (22:58)
[2025-04-24 08:36] VITALS: BP 149/67; TEMP 98.4; O2SAT 97
[2025-04-24] MEDS ORDERED: FENOFIBRATE 120 MG PO SCH (09:00)
[2025-04-24] MEDS ORDERED: Medication Not On Formulary EA ([Edarbyclor] 1 TAB) PO SCH (09:00)
[2025-04-24] MEDS ORDERED: CARVEDILOL 12.5 MG TABLET PO SCH (09:00)
[2025-04-24] MEDS ORDERED: Medication Not On Formulary EA ([Gemtesa] 75 MG) PO SCH (09:00)
[2025-04-24] MEDS ORDERED: Medication Not On Formulary EA (Fluticasone/Umeclidin/Vilanter (Trelegy Ellipta 100-62.5 IH SCH (09:00)
[2025-04-24] MEDS: PANTOPRAZOLE 40 MG TABLET.DR PO SCH (09:06)
[2025-04-24 09:07] VITALS: BP 149/67
[2025-04-24] MEDS: HYDROCHLOROTHIAZIDE 25 MG TABLET PO SCH (09:07)
[2025-04-24] MEDS: LOSARTAN POTASSIUM 50 MG TABLET PO SCH (09:07)
[2025-04-24] MEDS ORDERED: IMIPRAMINE 10 MG TABLET PO SCH (22:00)
[2025-04-24] MEDS ORDERED: ESZOPICLONE PO SCH (22:00)
[2025-04-24] MEDS ORDERED: ATORVASTATIN 40 MG TABLET PO SCH (22:00)
== END 2025-04-24 14:55 | disposition home or self-care (01) | DRG 141 ==
LOC: DS 07:16 → MED 13:29
PROC: 0NSV04Z Reposition Left Mandible with Internal Fixation Device, Open Approach (ICD-10-PCS; principal; 2025-04-24)
PROC: 0NST04Z Reposition Right Mandible with Internal Fixation Device, Open Approach (ICD-10-PCS; 2025-04-24)
PROC: 0NUR07Z Supplement Maxilla with Autologous Tissue Substitute, Open Approach (ICD-10-PCS; 2025-04-24)
PROC: 0NUT07Z Supplement Right Mandible with Autologous Tissue Substitute, Open Approach (ICD-10-PCS; 2025-04-24)
PROC: 0N5T0ZZ Destruction of Right Mandible, Open Approach (ICD-10-PCS; 2025-04-24)
PROC: 0N5V0ZZ Destruction of Left Mandible, Open Approach (ICD-10-PCS; 2025-04-24)
PROC: 0NSR0ZZ Reposition Maxilla, Open Approach (ICD-10-PCS; 2025-04-24)
PROC: 0N5R0ZZ Destruction of Maxilla, Open Approach (ICD-10-PCS; 2025-04-24)
DX: S02.609A Fracture of mandible, unspecified, initial encounter for closed fracture (principal); M87.9 Osteonecrosis, unspecified; X58.XXXA Exposure to other specified factors, initial encounter; Y92.9 Unspecified place or not applicable; M27.2 Inflammatory conditions of jaws; D16.4 Benign neoplasm of bones of skull and face; I11.0 Hypertensive heart disease with heart failure; I50.9 Heart failure, unspecified; E78.5 Hyperlipidemia, unspecified; M84.88 Other disorders of continuity of bone, other site; E66.9 Obesity, unspecified; J44.9 Chronic obstructive pulmonary disease, unspecified; Z82.49 Family history of ischemic heart disease and other diseases of the circulatory system; Z68.37 Body mass index [BMI] 37.0-37.9, adult; J32.0 Chronic maxillary sinusitis; M27.40 Unspecified cyst of jaw
CPT/HCPCS: 87081-TC; 88305-TC; 88311-TC; A4223; C1713; G0378; J0461; J1100; J1171; J2704; J3370; J3490; J7030; J7060

== ENCOUNTER 2025-08-28 07:56 | Inpatient (IN) | payer MEDICARE, OTHER ==
[~2025-08-28] VITALS: Ht 160 cm; Wt 77.1 kg
[2025-08-28] VITALS (7 sets, daily range): BP systolic 110–145; BP diastolic 65–86; TEMP 98–98.2; O2SAT 94–99
[~2025-08-28 07:56] MED LIST changes: -CHOL20004 PO; -CLOP75TA15 PO; +CRAN400C PO; -CYCL10TA9 PO; -DOCU250C21 PO; +EDARBYCLOR PO; -ESZO3TAB27 PO; +ESZO3TAB39 PO; -FEBU40TA PO; +FENO120T PO; -FENO134C PO; -FLUO60SO3 TP; -FURO40TA5 PO; -GABA300C PO; +GEMTESA PO; -HYDR-3972 PO; +IMIP10TA5 PO; -IMIP25TA6 PO; -KETO10TA2 PO; -LIDO30AD10 TP; -LINA290C PO; +MAGN400T26 PO; -MYRBETRIQ PO; -NALT50TA PO; -OLME1TAB19 PO; +OMEP20CA15 PO; -OMEP40CA21 PO; -RANI300C PO; -SPIR25TA6 PO
[2025-08-28] MEDS ORDERED: FENTANYL PF 100MCG/2ML AMPUL ONE (10:22)
[2025-08-28] MEDS ORDERED: ROCURONIUM BROMIDE 50 MG/5 ML ONE (10:23)
[2025-08-28] MEDS ORDERED: SUGAMMADEX SODIUM 200 MG/2 ML VIAL IV ONE (10:23)
[2025-08-28] MEDS ORDERED: LIDOCAINE 2%-EPI 1:100,000 30 ML VIAL ONE (10:34)
[2025-08-28] MEDS ORDERED: dexaMETHasone SOD PHOSPHATE 1 ML ONE (10:34)
[2025-08-28] MEDS ORDERED: VANCOMYCIN 1 GM VIAL ONE (10:34)
[2025-08-28] MEDS ORDERED: hydrALAZINE HCL IV 20 MG VIAL ONE (12:57)
[2025-08-28] MEDS: hydrALAZINE HCL IV 20 MG VIAL IV ONE (13:01)
[2025-08-28] MEDS: HYDROMORPHONE 1 MG/1 ML DISP.SYRIN IV PRN (14:13)
[2025-08-28] MEDS ORDERED: ACETAMINOPHEN 325 MG TABLET PO PRN ×2 (14:30→15:30)
[2025-08-28] MEDS ORDERED: ONDANSETRON HCL/PF 4 MG/2 ML VIAL IV PRN (14:30)
[2025-08-28] MEDS ORDERED: Z GUARD REMEDY 4 OZ OINT TP PRN (15:30)
[2025-08-28] MEDS ORDERED: HYDROCODONE/APAP 10/325MG TABLET PO PRN (15:30)
[2025-08-28] MEDS ORDERED: ONDANSETRON HCL/PF 4 MG/2 ML VIAL IVP PRN (15:30)
[2025-08-28] MEDS ORDERED: MAG HYDROX/AL HYDROX/SIMETH 30 ML UDC PO PRN (15:30)
[2025-08-28] MEDS ORDERED: MAGNESIUM HYDROXIDE 30 ML UDC PO PRN (15:30)
[2025-08-28] MEDS: CARVEDILOL 12.5 MG TABLET PO SCH (17:52)
[2025-08-28] MEDS: IV NS 0.9% 1,000 ML IV PRN (17:54)
[2025-08-28 18:05] LABS: CALCIUM, SERUM 8.7 mg/dL (8.5-10.1); CREATININE 1.0 mg/dL (0.6-1.3); SODIUM SERUM 145.0 mmol/L (136-145); UREA NITROGEN, BLOOD 25.0 mg/dL (7-18)
[2025-08-28] MEDS: MAGNESIUM OXIDE 400 MG TABLET PO SCH (20:24)
[2025-08-28] MEDS ORDERED: IMIPRAMINE 10 MG TABLET PO SCH ×2 (22:00)
[2025-08-28] MEDS: VANCOMYCIN 1 GM in IV D5W 250ml IV SCH (22:50)
[2025-08-29 07:30] VITALS: BP 124/68; TEMP 97.9; O2SAT 97
[2025-08-29] MEDS: PANTOPRAZOLE 40 MG TABLET.DR PO SCH (07:41)
[2025-08-29 08:35] LABS: CALCIUM, SERUM 8.8 mg/dL (8.5-10.1); CREATININE 0.9 mg/dL (0.6-1.3); PHOSPHORUS 3.2 mg/dL (2.5-4.9); SODIUM SERUM 144.0 mmol/L (136-145); UREA NITROGEN, BLOOD 24.0 mg/dL (7-18)
[2025-08-29] MEDS: ATORVASTATIN 40 MG TABLET PO SCH (08:58)
[2025-08-29 09:00] VITALS: BP 104/54
[2025-08-29] MEDS ORDERED: Medication Not On Formulary EA ([Gemtesa] 75 MG) PO SCH (09:00)
[2025-08-29] MEDS ORDERED: Medication Not On Formulary EA ([Edarbyclor] 1 TAB) PO SCH (09:00)
== END 2025-08-29 13:28 | disposition home or self-care (01) | DRG 908 ==
LOC: DS 07:56 → MED 07:57
PROVIDERS: ADMIT Nurse Practitioner Acute Care; ATTEND Nurse Practitioner Acute Care
PROC: 0NSR04Z Reposition Maxilla with Internal Fixation Device, Open Approach (ICD-10-PCS; 2025-08-28)
PROC: 09BQ0ZZ Excision of Right Maxillary Sinus, Open Approach (ICD-10-PCS; 2025-08-28)
PROC: 0NBT0ZZ Excision of Right Mandible, Open Approach (ICD-10-PCS; 2025-08-28)
PROC: 0NUR07Z Supplement Maxilla with Autologous Tissue Substitute, Open Approach (ICD-10-PCS; 2025-08-28)
PROC: 09UQ07Z Supplement Right Maxillary Sinus with Autologous Tissue Substitute, Open Approach (ICD-10-PCS; 2025-08-28)
PROC: 0N5V0ZZ Destruction of Left Mandible, Open Approach (ICD-10-PCS; 2025-08-28)
PROC: 0NPW04Z Removal of Internal Fixation Device from Facial Bone, Open Approach (ICD-10-PCS; 2025-08-28)
PROC: 0N5R0ZZ Destruction of Maxilla, Open Approach (ICD-10-PCS; principal; 2025-08-28 10:05)
DX: T86.831 Bone graft failure (principal); S02.40CK Maxillary fracture, right side, subsequent encounter for fracture with nonunion; S02.40DK Maxillary fracture, left side, subsequent encounter for fracture with nonunion; M27.2 Inflammatory conditions of jaws; I10 Essential (primary) hypertension; E66.9 Obesity, unspecified; Z90.49 Acquired absence of other specified parts of digestive tract; Z98.890 Other specified postprocedural states; I11.0 Hypertensive heart disease with heart failure; I50.9 Heart failure, unspecified; E78.5 Hyperlipidemia, unspecified; J44.9 Chronic obstructive pulmonary disease, unspecified; Z79.51 Long term (current) use of inhaled steroids; Z79.899 Other long term (current) drug therapy; Z79.02 Long term (current) use of antithrombotics/antiplatelets; Z68.30 Body mass index [BMI] 30.0-30.9, adult; K21.9 Gastro-esophageal reflux disease without esophagitis; Z79.85 Long-term (current) use of injectable non-insulin antidiabetic drugs; Y92.009 Unspecified place in unspecified non-institutional (private) residence as the place of occurrence of the external cause; X58.XXXD Exposure to other specified factors, subsequent encounter; D16.4 Benign neoplasm of bones of skull and face; D16.5 Benign neoplasm of lower jaw bone; Y83.2 Surgical operation with anastomosis, bypass or graft as the cause of abnormal reaction of the patient, or of later complication, without mention of misadventure at the time of the procedure
CPT/HCPCS: 36415; 80048-TC; 83735-TC; 84100-TC; 86850-TC; A4217; A4223; A4338; C1713; G0378; J0360; J1100; J1171; J2405; J2704; J3010; J3373; J3490; J7030; J7060